=== PATIENT | male | born 1970 | race Two or more races ===

== ENCOUNTER 2023-11-26 00:36 | Emergency (ER) | payer OTHER ==
[~2023-11-26] VITALS: Ht 182.9 cm; Wt 102.1 kg
[2023-11-26] MEDS ORDERED: GLUMETZA500 MG PO (00:44)
[2023-11-26] MEDS ORDERED: CRESTOR20 MG (00:44)
[2023-11-26] MEDS ORDERED: ALLOPURINOL100 MG PO (01:13)
[2023-11-26] MEDS ORDERED: FAMOTIDINE/PF 20 MG/2 ML VIAL IV PUSH STA (01:33)
[2023-11-26] MEDS ORDERED: PROMETHAZINE HCL 50 MG/ML AMPUL IM STA (01:33)
[2023-11-26 02:30] LABS: HEMATOCRIT 45.4 % (39.0-48.0); HEMOGLOBIN 15.5 g/dL (13-16.00); MEAN CORPUSCULAR HEMOGLOBIN 30.4 pg (27.00-32.0); MEAN CORPUSCULAR HGB CONC 34.2 g/dl (32.0-36.0); PLATELET COUNT 267 K/uL (150-450); RED BLOOD COUNT 5.11 M/uL (4.00-6.00); RED CELL DISTRIBUTION WIDTH 13.8 % (11.5-14.5)
[2023-11-26 02:30] LABS: PH,URINE 7.5 (5.0-8.0); URINE APPEARANCE Turbid; URINE BILIRRUBIN Negative (NEGATIVE); URINE BLOOD Negative; URINE COLOR Yellow; URINE GLUCOSE Negative (NEGATIVE); URINE LEUKOCYTE Negative; URINE NITRATE Negative; URINE PROTEIN Negative (NEGATIVE)
[2023-11-26 02:33] LABS: URINE BACTERIA 8.8 uL (0.0-1933); URINE RBC 12.5 uL (0.0-20.8)
[2023-11-26 02:42] LABS: CALCIUM 9.2 mg/dL (8.5-10.1); CREATININE SERUM 0.98 mg/dL (0.70-1.30); GFR 80.32; POTASSIUM 4.01 mEq/L (3.5-5.1)
[2023-11-26 03:07] LABS: URINE EPITHELIAL CELLS 0.9 uL (0.0-38.8)
[2023-11-26] MEDS ORDERED: ONDANSETRON ODT8 MG PO (03:51)
[2023-11-26] MEDS ORDERED: FAMOTIDINE40 MG PO (03:51)
== END 2023-11-26 03:57 ==
LOC: ER 00:37
PROVIDERS: General Practice
DX: F44.89 Other dissociative and conversion disorders (principal); R11.2 Nausea with vomiting, unspecified; E11.9 Type 2 diabetes mellitus without complications; Z79.84 Long term (current) use of oral hypoglycemic drugs; Z88.0 Allergy status to penicillin; Z91.013 Allergy to seafood